=== PATIENT | male | born 1990 | race Caucasian/White ===

== ENCOUNTER 2023-02-01 12:12 | Outpatient (CLI) | payer MEDICAID, SELFPAY | END 2023-02-01 12:13 | disposition home or self-care (01) | LOC: AMB 02-28 15:45 | PROVIDERS: Visit Provider Family Medicine | DX: F10.229 Alcohol dependence with intoxication, unspecified (principal) | CPT/HCPCS: A0425; A0427 ==

== ENCOUNTER 2023-02-22 21:41 | Outpatient (CLI) | payer MEDICAID, SELFPAY | END 2023-02-22 21:42 | disposition home or self-care (01) | LOC: AMB 03-07 14:56 | PROVIDERS: Visit Provider Internal Medicine | DX: R41.82 Altered mental status, unspecified (principal) | CPT/HCPCS: A0425; A0427 ==